=== PATIENT | female | born 1970 | race Hispanic/Latino ===

== ENCOUNTER → 2017-10-15 | Day surgery (SDC) | payer BC ==
[2017-10-09 15:09] LABS: BASOPHILS % 0.4 % (0.0-1.0); BILIRUBIN,URINE NEGATIVE (NEGATIVE); EOSINOPHILS # (AUTO) 0.1 (0.0-0.4); EOSINOPHILS % 1.1 % (0.0-6.0); HEMATOCRIT 34.2 % (34.2-44.1); HEMOGLOBIN 11.2 g/dL (12.0-16.0); KETONES,URINE NEGATIVE (NEGATIVE); LEUKOCYTE ESTERASE ,URINE NEGATIVE (NEGATIVE); LYMPHOCYTES # (AUTO) 1.7 (1.0-3.2); LYMPHOCYTES % 37.5 % (18.0-39.1); MEAN CORPUSCULAR HEMOGLOBIN 29.8 pg (28-32); MEAN CORPUSCULAR HGB CONC 32.7 g/dL (31-35); MONOCYTES # (AUTO) 0.3 (0.2-0.8); MONOCYTES % 5.8 % (4.4-11.3); NEUTROPHILS # (AUTO) 2.4 (2.1-6.9); NITRITE,URINE NEGATIVE (NEGATIVE); PLATELET COUNT 196 x10e3/uL (140-360); PROTEIN,URINE DIPSTICK NEGATIVE (NEGATIVE); RED BLOOD COUNT 3.76 x10e6/uL (3.6-5.1); RED CELL DISTRIBUTION WIDTH 15.8 % (11.7-14.4); URINE UROBILINOGEN 0.2 mg/dL (0.2 - 1)
[2017-10-09 15:10] LABS: CLARITY,URINE SL CLOUDY (CLEAR); COLOR,URINE YELLOW (YELLOW)
[2017-10-09 15:31] LABS: ALANINE AMINOTRANSFERASE 17 IU/L (0-55); ALBUMIN 4.5 g/dL (3.5-5.0); ALBUMIN/GLOBULIN RATIO 1.2 (0.8-2.0); ALKALINE PHOSPHATASE 74 IU/L (40-150); ANION GAP 11.7 mmol/L (8-16); BLOOD UREA NITROGEN 10 mg/dL (7-26); BUN/CREATININE RATIO 12 (6-25); CALCIUM 9.4 mg/dL (8.4-10.2); CARBON DIOXIDE 25 mmol/L (22-29); CHLORIDE 106 mmol/L (98-107); CREATININE, SERUM 0.83 mg/dL (0.57-1.11); EST GLOMERULAR FILTRATION RATE > 60 ML/MIN (60-); GLUCOSE 85 mg/dL (74-118); POTASSIUM 3.7 mmol/L (3.5-5.1); SODIUM 139 mmol/L (136-145)
[~2017-10-15] MED LIST: BUPIVACAINE 0.25%/EPI 30ML SDV INJ ONE; DEXAMETHASONE SOD PHOS INJ 4 MG/ML VIAL ONE; FENTANYL CITRATE/PF 100MCG/2 ML INJ ONE; FERROUS FUMARA324 MG PO; KETOROLAC TROMETHAMINE 30 MG/ML VIAL ONE; LIDOCAINE HCL 2% LOCAL INJ 5 ML SDV VIAL INJ ONE; METOCLOPRAMIDE HCL 10 MG/2ML VIAL ONE; MIDAZOLAM HCL 2 MG/2 ML VIAL ONE; ONDANSETRON HCL INJ 2 MG/ML VIAL ONE; PROPOFOL IV EMULSION 10 MG/ML 20 ML VIAL ONE; ROCURONIUM BROMIDE 10 MG/ML 5ML VIAL ONE; SEVOFLURANE INHAL SOLN 250 ML PEN BTL ONE
--- NOTE | 2017-10-15 14:28 | Operative Report ---
DATE OF PROCEDURE: October 15, 2017 PREOPERATIVE DIAGNOSES 1. Cholecystitis. 2. Cholelithiasis. 3. Incarcerated umbilical hernia. POSTOPERATIVE DIAGNOSES 1. Cholecystitis. 2. Cholelithiasis. 3. Incarcerated umbilical hernia. OPERATIONS PERFORMED 1. Laparoscopic cholecystectomy. 2. Repair of incarcerated umbilical hernia. INTERVIEWING CLERK: JARRED Wilcox. ANESTHESIA: General. COMPLICATIONS: None. ESTIMATED BLOOD LOSS: Minimal. DESCRIPTION OF PROCEDURE: With the patient lying in bed in the supine position under good general endotracheal anesthesia, the abdomen was prepped with Betadine solution and draped in the usual manner. A semilunar subumbilical incision was made, was carried down through the subcutaneous tissue down to the midline fascia. The hernia sac was then encircled with normal fascia all the way around. The umbilicus was from the hernia sac and the hernia sac was then opened and the contents were dissected free and reduced back to the intra-abdominal cavity. An 11 mm trocar was then placed into the umbilical defect. Pneumoperitoneum was established and a 10 mm video laparoscope was placed into the intra-abdominal cavity. Under direct vision, three 5 mm trocars were placed in the right subcostal region. Video laparoscopy at this point revealed the gallbladder to contain multiple stones. The rest of the abdominal exploration appeared to be within normal limits. We went ahead and proceeded with cholecystectomy. The peritoneum overlying the gallbladder was then opened up and the cystic duct was identified. The cystic duct was followed to its junction with the common duct. The cystic duct was then circumferentially dissected away from the common duct, doubly clipped, and divided. The cystic artery had an anterior and a posterior branch and both of these were individually clipped and divided. The gallbladder was then slowly and carefully taken off of the liver bed using the cautery scissors and perfect hemostasis was ascertained. The gallbladder was grasped through the umbilical port and removed without any difficulty. Video laparoscopy was having carried out. The liver bed was found to be perfectly dry. All the excess fluid was aspirated. The pneumoperitoneum was evacuated and all the trocars were removed under direct vision. The midline fascia at the umbilicus was then closed in a standard hernia repair transversely using interrupted sutures of 0 Ethibond. This gave us a satisfactory closure without any tension. All layers were infiltrated on the way out with solution of 0.25% Marcaine. Umbilicus was then tacked back down to the midline fascia with 3-0 Vicryl, the subcutaneous tissue was approximated with 3-0 plain, and the skin was closed with interrupted vertical mattress sutures of 3-0 silk for the umbilicus and the other puncture wounds were closed with subcuticular 5-0 Vicryl. Benzoin, Steri-Strips, Band-Aids, and dressings were applied. The sponge, lap, and needle count was correct. The patient tolerated the procedure well and returned to the recovery room in stable condition. Job#: [id number] VAS
== END | disposition home or self-care (01) ==
LOC: OR 08:52
PROVIDERS: ATTEND Surgery
DX: K80.10 Calculus of gallbladder with chronic cholecystitis without obstruction (principal); K42.0 Umbilical hernia with obstruction, without gangrene; I10 Essential (primary) hypertension; Z01.810 Encounter for preprocedural cardiovascular examination; Z01.812 Encounter for preprocedural laboratory examination
CPT/HCPCS: 36415; 47562; 49587; 80053; 81003; 81025; 85025; 88304; 93005; C1766; J1100; J1885; J2001; J2250; J2405; J2765

== ENCOUNTER 2018-03-28 20:40 | Emergency (ER) | payer BC ==
[~2018-03-28] VITALS: Ht 157.5 cm; Wt 47.2 kg
[~2018-03-28 20:40] MED LIST changes: -BUPIVACAINE 0.25%/EPI 30ML SDV INJ ONE; -DEXAMETHASONE SOD PHOS INJ 4 MG/ML VIAL ONE; -FENTANYL CITRATE/PF 100MCG/2 ML INJ ONE; -KETOROLAC TROMETHAMINE 30 MG/ML VIAL ONE; -LIDOCAINE HCL 2% LOCAL INJ 5 ML SDV VIAL INJ ONE; -METOCLOPRAMIDE HCL 10 MG/2ML VIAL ONE; -MIDAZOLAM HCL 2 MG/2 ML VIAL ONE; -ONDANSETRON HCL INJ 2 MG/ML VIAL ONE; -PROPOFOL IV EMULSION 10 MG/ML 20 ML VIAL ONE; -ROCURONIUM BROMIDE 10 MG/ML 5ML VIAL ONE; -SEVOFLURANE INHAL SOLN 250 ML PEN BTL ONE
[2018-03-28 21:38] LABS: BASOPHILS % 0.4 % (0.0-1.0); EOSINOPHILS % 0.6 % (0.0-6.0); HEMATOCRIT 35.1 % (34.2-44.1); HEMOGLOBIN 12.3 g/dL (12.0-16.0); LYMPHOCYTES # (AUTO) 1.2 (1.0-3.2); LYMPHOCYTES % 24.8 % (18.0-39.1); MEAN CORPUSCULAR HEMOGLOBIN 32.8 pg (28-32); MEAN CORPUSCULAR VOLUME 93.6 fL (81-99); MONOCYTES # (AUTO) 0.2 (0.2-0.8); MONOCYTES % 4.7 % (4.4-11.3); NEUTROPHILS # (AUTO) 3.4 (2.1-6.9); NEUTROPHILS % 69.3 % (38.7-80.0); PLATELET COUNT 141 x10e3/uL (140-360); RED BLOOD COUNT 3.75 x10e6/uL (3.6-5.1); RED CELL DISTRIBUTION WIDTH 11.8 % (11.7-14.4)
[2018-03-28 21:47] LABS: CLARITY,URINE CLEAR (CLEAR); COLOR,URINE COLORLESS (YELLOW)
[2018-03-28 21:48] LABS: BILIRUBIN,URINE NEGATIVE (NEGATIVE); KETONES,URINE NEGATIVE (NEGATIVE); LEUKOCYTE ESTERASE ,URINE NEGATIVE (NEGATIVE); NITRITE,URINE NEGATIVE (NEGATIVE); PROTEIN,URINE DIPSTICK NEGATIVE (NEGATIVE); URINE UROBILINOGEN 0.2 mg/dL (0.2 - 1)
[2018-03-28 21:55] LABS: RBC,URINE 0-5 /HPF (0-5); WBC,URINE (MAN) 0-5 /HPF (0-5)
[2018-03-28 21:56] LABS: EPITHELIAL CELLS,URINE RARE /LPF
[2018-03-28 21:56] LABS: ALANINE AMINOTRANSFERASE 26 IU/L (0-55); ALBUMIN 4.8 g/dL (3.5-5.0); ALBUMIN/GLOBULIN RATIO 1.3 (0.8-2.0); ALKALINE PHOSPHATASE 77 IU/L (40-150); ANION GAP 13.2 mmol/L (8-16); BLOOD UREA NITROGEN 9 mg/dL (7-26); BUN/CREATININE RATIO 13 (6-25); CARBON DIOXIDE 27 mmol/L (22-29); CHLORIDE 102 mmol/L (98-107); CREATINE KINASE 86 IU/L (29-168); CREATININE, SERUM 0.72 mg/dL (0.57-1.11); EST GLOMERULAR FILTRATION RATE > 60 ML/MIN (60-); GLUCOSE 88 mg/dL (74-118); MAGNESIUM 2.1 MG/DL (1.3-2.1); POTASSIUM 3.2 mmol/L (3.5-5.1); SODIUM 139 mmol/L (136-145)
--- NOTE | 2018-03-28 22:41 | Diagnostic Imaging Report ---
CHEST 2 VIEWS, Technique: CHEST 2 VIEWS Comparison: None Clinical history: \S\CHEST DISCOMFORT \S\[id number] \S\2213 \S\Y DISCUSSION: Normal appearance of the heart, mediastinum, lungs and pleural spaces. Linear 6 mm radiopaque density projecting over the shoulder may be external or artifactual. Cholecystectomy clips. IMPRESSION: No acute abnormality Signed by: Dr Linnea Daniels MD on 03/28/2018 10:37 PM
[2018-03-28] MEDS ORDERED: POTASSIUM CHLORIDE 20 MEQ TAB CR PO STA (23:04)
[2018-03-28] MEDS ORDERED: POTASSIUM CHLORIDE 20MEQ/15ML UDC PO ONE (23:45)
[2018-03-29] MEDS ORDERED: ASPIRIN 81 MG CHEW TAB PO STA (00:14)
[2018-03-29 00:29] VITALS: BP 121/90
[2018-03-30] MEDS ORDERED: HYDROCHLOROTHIA25 MG PO (13:32)
[2018-03-30] MEDS ORDERED: ASPIR 8181 MG PO (13:32)
== END 2018-03-29 01:03 | disposition home or self-care (01) ==
LOC: ER 20:40
DX: R07.89 Other chest pain (principal); I10 Essential (primary) hypertension
CPT/HCPCS: 36415; 71046; 80053; 81001; 82550; 82553; 83735; 84484; 85025; 93005; 99284

== ENCOUNTER → 2018-03-30 | Day surgery (SDC) | payer BC ==
[2018-03-30] VITALS (10 sets, daily range): BP systolic 98–121; BP diastolic 60–83
[~2018-03-30] VITALS: Ht 157.5 cm; Wt 49.0 kg
[~2018-03-30] MED LIST changes: +ASPIR 8181 MG PO; +FERROUS SULFAT324 MG PO; +HYDROCHLOROTHIA25 MG PO; +METOPROLOL SUCC25 MG PO
--- OUTSIDE RECORDS SUMMARY | 2018-03-30 10:28 | XMS REPORT | Continuity of Care Document ---
Author Author [facility] Organization [facility] Address [address] [place] [address] Phone Unavailable Care Team Providers Care Slab Depiler Operator Name Role Phone TATIANNA GORDON MD PCP Insurance Providers Guarantor Portia Nieves Address [address] [place] [address] Email [email or web address] Payer [facility] Ppo Policy Number [id number] Subscriber's Name CarolinaCristiano Relationship 01 Group Number [id number] Group Name [employer] Effective Date 12 Advance Directives Directive Response Recorded Date/Time Does the patient have an advance directive? No 08/11/17 11:23am If yes, is advance directive on file with [facility]? No 08/11/17 11:23am If not on file with [facility] will patient provide a copy? Yes 03/28/18 11:45pm Do you have a Directive to Physician? No 03/28/18 11:45pm Do you have a Medical Power of Market Investigator? No 03/28/18 11:45pm Do you have an out of hospital Do Not Resuscitate Order? No 03/28/18 11:45pm Do you have any special needs we should be aware of? No 03/28/18 11:45pm Do you have a support person here with you today? Yes 03/28/18 11:45pm Did patient receive Notice of Privacy Practices? Yes 03/28/18 11:45pm Did patient receive patient rights and responsibilities? Yes 03/28/18 11:45pm Problems No problem information available. Medications Current Home Medications Medication Dose Units Route Directions Days Qty Instructions Start Date Ferrous Fumarate 324 Mg Tablet 324 Mg Oral Daily Social History Smoking Status Start Date Stop Date Never Smoker Hospital Discharge Instructions No hospital discharge instruction information available. Plan of Care Discharge Date 03/29/18 1:03am Disposition HOME, SELF-CARE Condition at Discharge Stable Instructions/Education Provided Chest Pain - Noncardiac Chest Pain - Chest Wall Prescriptions See Medication Section Referrals TATIANNA GORDON MD Order Date: Call for an appointment Address: [facility] [address] [place] [address] Note: sigue con dr gordon en [facility] [place]isa bul[place]o. bul[place]o para las 2pm. rx tomase lisa aspirin 81mg por la voca cada ayo Functional Status No functional status information available. Allergies, Adverse Reactions, Alerts No known allergies. Immunizations No immunization information available. Vital Signs Acute Vital Signs Vital Response Date/Time Temperature (Fahrenheit) 97.9 degrees F (97.6 - 99.5) 03/29/2018 12:29am Pulse Pulse Rate (adult) 64 bpm (60 - 90) 03/29/2018 12:29am Respiratory Rate 19 bpm (12 - 24) 03/29/2018 12:29am Blood Pressure 121/90 mm Hg 03/29/2018 12:29am Height 5 ft 2 in 03/28/2018 8:51pm Weight 104 lb 03/28/2018 8:51pm Body Mass Index 19.0 kg/m^2 03/28/2018 8:51pm Results Laboratory Results Test Name Result Units Flags Reference Collection Date/Time Result Date/ Time Comments Urine Test NEGATIVE NEGATIVE 10/15/2017 9:30am 10/15/2017 9 :52am White Blood Count 4.92 x10e3/uL 4.8-10.8 03/28/2018 9:30pm 03/28/2018 9 :40pm Red Blood Count 3.75 x10e6/uL 3.6-5.1 03/28/2018 9:30pm 03/28/2018 9: 40pm Hemoglobin 12.3 g/dL 12.0-16.0 03/28/2018 9:30pm 03/28/2018 9:40pm Hematocrit 35.1 % 34.2-44.1 03/28/2018 9:30pm 03/28/2018 9:40pm Mean Corpuscular Volume 93.6 fL 81-99 03/28/2018 9:30pm 03/28/2018 9: 40pm Mean Corpuscular Hemoglobin 32.8 pg H 28-32 03/28/2018 9:30pm 2017 9:40pm Mean Corpuscular Hemoglobin Concent 35.0 g/dL 31-35 03/28/2018 9:30pm 03/28/2018 9:40pm Red Cell Distribution Width 11.8 % 11.7-14.4 03/28/2018 9:30pm 2017 9:40pm Platelet Count 141 x10e3/uL 140-360 03/28/2018 9:30pm 03/28/2018 9: 40pm Neutrophils (%) (Auto) 69.3 % 38.7-80.0 03/28/2018 9:30pm 03/28/2018 9: 40pm Lymphocytes (%) (Auto) 24.8 % 18.0-39.1 03/28/2018 9:30pm 03/28/2018 9: 40pm Monocytes (%) (Auto) 4.7 % 4.4-11.3 03/28/2018 9:30pm 03/28/2018 9: 40pm Eosinophils (%) (Auto) 0.6 % 0.0-6.0 03/28/2018 9:30pm 03/28/2018 9: 40pm Basophils (%) (Auto) 0.4 % 0.0-1.0 03/28/2018 9:30pm 03/28/2018 9:40pm IM GRANULOCYTES % 0.2 % 0.0-1.0 03/28/2018 9:30pm 03/28/2018 9:40pm Neutrophils # (Auto) 3.4 2.1-6.9 03/28/2018 9:30pm 03/28/2018 9:40pm Lymphocytes # (Auto) 1.2 1.0-3.2 03/28/2018 9:30pm 03/28/2018 9:40pm Monocytes # (Auto) 0.2 0.2-0.8 03/28/2018 9:30pm 03/28/2018 9:40pm Eosinophils # (Auto) 0.0 0.0-0.4 03/28/2018 9:30pm 03/28/2018 9:40pm Basophils # (Auto) 0.0 0.0-0.1 03/28/2018 9:30pm 03/28/2018 9:40pm Absolute Immature Granulocyte (auto 0.01 x10e3/uL 0-0.1 03/28/2018 9: 30pm 03/28/2018 9:40pm Urine Color COLORLESS YELLOW 03/28/2018 9:00pm 03/28/2018 9:49pm Urine Clarity CLEAR CLEAR 03/28/2018 9:00pm 03/28/2018 9:49pm Urine Specific [place] 1.005 L 1.010-1.025 03/28/2018 9:00pm 2017 9:49pm Urine pH 6.5 5 - 7 03/28/2018 9:00pm 03/28/2018 9:49pm Urine Leukocyte Esterase NEGATIVE NEGATIVE 03/28/2018 9:00pm 2017 9:49pm Urine Nitrite NEGATIVE NEGATIVE 03/28/2018 9:00pm 03/28/2018 9:49pm Urine Protein NEGATIVE NEGATIVE 03/28/2018 9:00pm 03/28/2018 9:49pm Urine Glucose (UA) NEGATIVE NEGATIVE 03/28/2018 9:00pm 03/28/2018 9: 49pm Urine Ketones NEGATIVE NEGATIVE 03/28/2018 9:00pm 03/28/2018 9:49pm Urine Urobilinogen 0.2 mg/dL 0.2 - 1 03/28/2018 9:00pm 03/28/2018 9: 49pm Urine Bilirubin NEGATIVE NEGATIVE 03/28/2018 9:00pm 03/28/2018 9: 49pm Urine Blood NEGATIVE NEGATIVE 03/28/2018 9:00pm 03/28/2018 9:49pm Urine WBC 0-5 /HPF 0-5 03/28/2018 9:00pm 03/28/2018 9:56pm Urine RBC 0-5 /HPF 0-5 03/28/2018 9:00pm 03/28/2018 9:56pm Urine Bacteria NONE /HPF NONE 03/28/2018 9:00pm 03/28/2018 9:56pm Urine Epithelial Cells RARE /LPF NONE 03/28/2018 9:00pm 03/28/2018 9: 56pm Sodium Level 139 mmol/L 136-145 03/28/2018 9:30pm 03/28/2018 9:58pm Potassium Level 3.2 mmol/L L 3.5-5.1 03/28/2018 9:30pm 03/28/2018 9: 58pm Chloride Level 102 mmol/L 98-107 03/28/2018 9:30pm 03/28/2018 9:58pm Carbon Dioxide Level 27 mmol/L 22-29 03/28/2018 9:30pm 03/28/2018 9: 58pm Anion Gap 13.2 mmol/L 8-16 03/28/2018 9:30pm 03/28/2018 9:58pm Blood Urea Nitrogen 9 mg/dL 7-03/28/2018 9:30pm 03/28/2018 9:58pm Creatinine 0.72 mg/dL 0.57-1.11 03/28/2018 9:30pm 03/28/2018 9:58pm BUN/Creatinine Ratio 13 6-25 03/28/2018 9:30pm 03/28/2018 9:58pm Estimat Glomerular Filtration Rate > 60 ML/MIN 60- 03/28/2018 9:30pm 9:58pm Ranges were taken from the National Kidney Disease Education Program and the National Kidney Foundation literature. Reference ranges: 60 or greater: Normal 16-59 (for 3 consecutive months): Chronic kidney disease 15 or less: Kidney failure Glucose Level 88 mg/dL 74-118 03/28/2018 9:30pm 03/28/2018 9:58pm Calcium Level 10.0 mg/dL 8.4-10.2 03/28/2018 9:30pm 03/28/2018 9:58pm Magnesium Level 2.1 MG/DL 1.3-2.1 03/28/2018 9:30pm 03/28/2018 9:58pm Total Bilirubin 0.5 mg/dL 0.2-1.2 03/28/2018 9:30pm 03/28/2018 9:58pm Aspartate Amino Transf (AST/SGOT) 27 IU/L 5-34 03/28/2018 9:30pm 2017 9:58pm Alanine Aminotransferase (ALT/SGPT) 26 IU/L 0-55 03/28/2018 9:30pm 12/2017 9:58pm Total Protein 8.4 g/dL H 6.5-8.1 03/28/2018 9:30pm 03/28/2018 9:58pm Albumin 4.8 g/dL 3.5-5.0 03/28/2018 9:30pm 03/28/2018 9:58pm Globulin 3.6 g/dL H 2.3-3.5 03/28/2018 9:30pm 03/28/2018 9:58pm Albumin/Globulin Ratio 1.3 0.8-2.0 03/28/2018 9:30pm 03/28/2018 9: 58pm Alkaline Phosphatase 77 IU/L 40-150 03/28/2018 9:30pm 03/28/2018 9: 58pm Creatine Kinase 86 IU/L 29-168 03/28/2018 9:30pm 03/28/2018 9:58pm Creatine Kinase MB 1.70 ng/mL 0-5.0 03/28/2018 9:30pm 03/28/2018 10: 04pm Troponin I < 0.001 ng/mL 0-0.300 03/28/2018 9:30pm 03/28/2018 10:04pm Procedures Procedure Status Date Provider(s) LAPAROSCOPIC CHOLECYSTECTOMY Completed 10/15/17 MICHELLE RAWLS MD RPR UMBIL GLENIS BLOCK > 5 YR Completed 10/15/17 MICHELLE RAWLS MD X-ray of chest, two views Active 03/28/18 AYAD ORTIZ MD Encounters Encounter Location Arrival/Admit Date Discharge/Depart Date Attending Provider Departed Emergency Room [facility] 03/28/18 8:40pm 1:03am AYAD ORTIZ MD Registered Surgical Day Care [facility] 10/15/17 8:52am MICHELLE RAWLS MD Registered Clinic [facility] 09/04/17 11:26am MICHELLE RAWLS MD Registered Surgical Day Care [facility] 08/14/17 6:23am MICHELLE RAWLS MD
--- OUTSIDE RECORDS SUMMARY | 2018-03-30 10:28 | XMS REPORT ---
Author [facility] Address Unknown Phone Unavailable Care Team Providers Care Sponge Diver Name Role Phone AYAD ORTIZ Unavailable Unavailable Problems This patient has no known problems. Allergies, Adverse Reactions, Alerts This patient has no known allergies or adverse reactions. Medications This patient has no known medications. Results Test Description Test Time Test Comments Text Results Atomic Results Result Comments CHEST 2 VIEWS [place] [address] Patient Name: ENEDINA NIEVES MR #: [id number] : 1970 Age/Sex: 47/F Req #: [id number] Adm Physician: Ordered by: AYAD ORTIZ MD Report #: [id number] Location: ER Room/Bed: Procedure: [id number] DX/CHEST 2 VIEWS Exam Date: 03/28/18 Exam Time: 2212 REPORT STATUS: Signed CHEST 2 VIEWS, Technique: CHEST 2 VIEWS Comparison: None Clinical history: S CHEST DISCOMFORT S [id number] S 2213 S Y DISCUSSION: Normal appearance of the heart, mediastinum, lungs and pleural spaces. Linear 6 mm radiopaque density projecting over the shoulder may be external or artifactual. Cholecystectomy clips. IMPRESSION: No acute abnormality Signed by: Dr Nataliia Daniels MD on 03/28/2018 10:37 PM Dictated By: NATALIIA DANIELS MD 36 Transcribed By: TAVON on 03/28/182236 COPY TO: AYAD ORTIZ MD
[2018-03-30 12:34] LABS: BASOPHILS % 0.3 % (0.0-1.0); EOSINOPHILS % 1.1 % (0.0-6.0); HEMATOCRIT 37.3 % (34.2-44.1); HEMOGLOBIN 12.9 g/dL (12.0-16.0); LYMPHOCYTES # (AUTO) 1.1 (1.0-3.2); LYMPHOCYTES % 31.1 % (18.0-39.1); MEAN CORPUSCULAR HEMOGLOBIN 32.6 pg (28-32); MEAN CORPUSCULAR HGB CONC 34.6 g/dL (31-35); MEAN CORPUSCULAR VOLUME 94.2 fL (81-99); MONOCYTES # (AUTO) 0.2 (0.2-0.8); MONOCYTES % 5.8 % (4.4-11.3); NEUTROPHILS # (AUTO) 2.2 (2.1-6.9); NEUTROPHILS % 61.7 % (38.7-80.0); PLATELET COUNT 156 x10e3/uL (140-360); RED BLOOD COUNT 3.96 x10e6/uL (3.6-5.1); RED CELL DISTRIBUTION WIDTH 11.8 % (11.7-14.4)
[2018-03-30 12:44] LABS: INR 1.05; PROTHROMBIN TIME 12.9 seconds (11.9-14.5)
[2018-03-30 12:53] LABS: ALANINE AMINOTRANSFERASE 24 IU/L (0-55); ALBUMIN 4.8 g/dL (3.5-5.0); ALBUMIN/GLOBULIN RATIO 1.2 (0.8-2.0); ALKALINE PHOSPHATASE 77 IU/L (40-150); ANION GAP 11.6 mmol/L (8-16); BLOOD UREA NITROGEN 9 mg/dL (7-26); BUN/CREATININE RATIO 13 (6-25); CARBON DIOXIDE 29 mmol/L (22-29); CHLORIDE 100 mmol/L (98-107); CHOL/HDL RATIO 3.6 (3.0-3.6); CHOLESTEROL 206 MD/DL (0-199); CREATININE, SERUM 0.69 mg/dL (0.57-1.11); EST GLOMERULAR FILTRATION RATE > 60 ML/MIN (60-); GLUCOSE 81 mg/dL (74-118); HDL CHOLESTEROL 58 MG/DL (40-60); LDL CHOLESTEROL 134 MG/DL (60-130); POTASSIUM 3.6 mmol/L (3.5-5.1); SODIUM 137 mmol/L (136-145); TRIGLYCERIDES 70 MG/DL (0-149)
--- NOTE | 2018-06-18 04:13 | Operative Report ---
DATE OF PROCEDURE: March 30, 2018 CARDIAC FERTILIZER APPLICATOR PROCEDURE NOTE INDICATIONS 1. Coronary artery disease. 2. Abnormal stress test. 3. Unstable angina. PROCEDURES PERFORMED 1. Left heart catheterization, selective coronary angiography. 2. Deployment of right wrist transradial band. COMPLICATIONS: None. RECOMMENDATIONS: Beta shu for myocardial bridge. Access obtained in the right radial artery. A 5-Stateless sheath was placed. 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 No complications. No intervention was deemed necessary. Right wrist TR band applied. Patient discharged home same day. Job#: [id number] DIALLO
== END | disposition home or self-care (01) ==
LOC: CATH LAB 10:25 → MERGE 19:00
PROVIDERS: ATTEND Internal Medicine Interventional Cardiology
DX: I25.110 Atherosclerotic heart disease of native coronary artery with unstable angina pectoris (principal); R94.39 Abnormal result of other cardiovascular function study; D64.9 Anemia, unspecified; Z79.82 Long term (current) use of aspirin
CPT/HCPCS: 36415; 80053; 80061; 81025; 85025; 85610; 93454; C1887; 36140; 77002; 93458

== ENCOUNTER 2018-04-06 03:07 | Emergency (ER) | payer BC ==
[~2018-04-06] VITALS: Ht 157.5 cm; Wt 49.0 kg
[~2018-04-06 03:07] MED LIST changes: -FERROUS SULFAT324 MG PO; -METOPROLOL SUCC25 MG PO
[2018-04-06] MEDS ORDERED: METOPROLOL SUCC25 MG PO (03:25)
[2018-04-06] MEDS ORDERED: FERROUS SULFAT324 MG PO (03:26)
[2018-04-06 04:03] LABS: CREATINE KINASE 39 IU/L (29-168)
[2018-04-06 04:22] VITALS: BP 120/87
--- NOTE | 2018-04-06 06:03 | Diagnostic Imaging Report ---
EXAM: CHEST SINGLE (PORTABLE), AP 1 view INDICATION: Chest pain COMPARISON: None FINDINGS: LINES/TUBES: None LUNGS: No consolidations or edema. PLEURA: No effusions or pneumothorax. HEART AND MEDIASTINUM: Normal size and contour. BONES AND SOFT TISSUES: No acute findings. IMPRESSION: No acute thoracic abnormality. Signed by: Dr. Erna Padilla M.D. on 04/06/2018 5:59 AM
== END 2018-04-06 04:39 | disposition home or self-care (01) ==
LOC: ER 03:07
DX: R07.89 Other chest pain (principal); I10 Essential (primary) hypertension; Z79.82 Long term (current) use of aspirin
CPT/HCPCS: 36415; 71045; 82550; 82553; 84484; 93005; 99284

== ENCOUNTER → 2019-03-28 | Day surgery (SDC) | payer BC ==
[2019-03-25 11:38] LABS: BASOPHILS % 0.5 % (0.0-1.0); EOSINOPHILS % 0.8 % (0.0-6.0); HEMATOCRIT 34.6 % (34.2-44.1); HEMOGLOBIN 11.9 g/dL (12.0-16.0); LYMPHOCYTES % 26.3 % (18.0-39.1); MEAN CORPUSCULAR HEMOGLOBIN 32.4 pg (28-32); MEAN CORPUSCULAR HGB CONC 34.4 g/dL (31-35); MEAN CORPUSCULAR VOLUME 94.3 fL (81-99); MONOCYTES # (AUTO) 0.2 (0.2-0.8); MONOCYTES % 6.2 % (4.4-11.3); NEUTROPHILS # (AUTO) 2.4 (2.1-6.9); NEUTROPHILS % 65.9 % (38.7-80.0); PLATELET COUNT 154 x10e3/uL (140-360); RED BLOOD COUNT 3.67 x10e6/uL (3.6-5.1); RED CELL DISTRIBUTION WIDTH 11.9 % (11.7-14.4)
[2019-03-25 11:53] LABS: ANION GAP 9.2 mmol/L (8-16); BLOOD UREA NITROGEN 8 mg/dL (7-26); BUN/CREATININE RATIO 11 (6-25); CALCIUM 9.6 mg/dL (8.4-10.2); CARBON DIOXIDE 28 mmol/L (22-29); CHLORIDE 100 mmol/L (98-107); CREATININE, SERUM 0.71 mg/dL (0.57-1.11); EST GLOMERULAR FILTRATION RATE > 60 ML/MIN (60-); GLUCOSE 82 mg/dL (74-118); POTASSIUM 4.2 mmol/L (3.5-5.1); SODIUM 133 mmol/L (136-145)
--- NOTE | 2019-03-25 15:56 | Diagnostic Imaging Report ---
Chest, 2 views, 03/25/2019. History: Preop, gastric mass. Comparison: 03/28/2018. Findings: The cardiomediastinal silhouette and pulmonary vasculature are within normal limits. The lungs are clear without evidence of consolidation or pleural effusion. There are no acute osseous or soft tissue abnormalities. Impression: No acute cardiopulmonary abnormality. Signed by: Chase Scott on 03/25/2019 3:52 PM
[~2019-03-28] MED LIST changes: +ANTIBIOTIC PO; +COLD & COUGH E118 ML; +FENTANYL CITRATE/PF 100MCG/2 ML INJ ONE; +FERROUS SULFAT324 MG PO; +FLUCONAZOLE100 MG PO; +LIDOCAINE HCL 2% LOCAL INJ 5 ML SDV VIAL INJ ONE; +METOPROLOL SUCC25 MG PO; +MIDAZOLAM HCL 2 MG/2 ML VIAL ONE; +MONTELUKAST SOD10 MG PO; +PROPOFOL IV EMULSION 10 MG/ML 20 ML VIAL ONE; +SYMBICORT 16010.2 GM INH; +VENTOLIN HFA18 GM INH; +[UNRECOGNIZED DRUG - OTHER]; +[UNRECOGNIZED DRUG - OTHER] PO
[2019-03-28 10:30] VITALS: BP 111/64
== END | disposition home or self-care (01) ==
LOC: OR 07:14
PROVIDERS: ATTEND Surgery
DX: R19.09 Other intra-abdominal and pelvic swelling, mass and lump (principal); J45.909 Unspecified asthma, uncomplicated; I10 Essential (primary) hypertension; Z01.810 Encounter for preprocedural cardiovascular examination; Z01.812 Encounter for preprocedural laboratory examination; Z01.818 Encounter for other preprocedural examination
CPT/HCPCS: 36415; 43235; 71046; 80048; 81025; 85025; 93005; J2001; J2250; J2704; 43239